=== PATIENT | female | born 1990 | race African-American/Black ===

== ENCOUNTER 2018-01-31 03:08 | Emergency (ER) | payer OTHER ==
[~2018-01-31] VITALS: Ht 162.6 cm; Wt 63.5 kg
--- NOTE | 2018-01-31 03:41 | PHYS DOC ---
Adult General Chief Complaint Chief Complaint: HEMATEMESIS/VOMITING BLOOD HPI HPI 27 female presents to the emergency department after an episode of vomiting. She states that she vomited bright red blood. She states that the first episode was not bloody. 2 Was. She Denies Any Chest Pain. She Admits to Some Abdominal Cramping. States Symptoms Started Yesterday. Denies Fevers or Chills. Review of Systems Review of Systems Constitutional: Denies fever or chills Eyes: Denies change in visual acuity, redness, or eye pain HENT: Denies nasal congestion or sore throat Respiratory: Denies cough or shortness of breath Cardiovascular: No additional information not addressed in HPI : Denies dysuria or hematuria Musculoskeletal: Denies back pain or joint pain Integument: Denies rash or skin lesions Neurologic: Denies headache, focal weakness or sensory changes Endocrine: Denies polyuria or polydipsia All other systems were reviewed and found to be within normal limits, except as documented in this note. Family History Family History noncontributory Current Medications Current Medications Current Medications Medications (Trade) Dose Ordered Sig/Maria Esther Start Time Stop Time Status Last Admin Dose Admin Famotidine (Pepcid Vial) 40 mg 1X ONCE 01/31/18 04:00 01/31/18 04:01 DC 01/31/18 04:40 40 MG Info (CONTRAST GIVEN -- Rx MONITORING) 1 each PRN DAILY PRN 01/31/18 05:45 02/02/18 05:44 Iohexol (Omnipaque 300 Mg/ml) 75 ml 1X ONCE 01/31/18 05:45 01/31/18 05:46 DC 01/31/18 05:47 75 ML Promethazine HCl (Phenergan Im) 25 mg 1X ONCE 01/31/18 04:00 01/31/18 04:01 DC 01/31/18 04:39 25 MG Sodium Chloride 1,000 ml @ 1,000 mls/hr 1X ONCE 01/31/18 04:00 01/31/18 04:59 DC 01/31/18 04:39 1,000 MLS/HR none Allergies Allergies Allergies Coded Allergies Type Severity Reaction Last Updated Verified No Known Drug Allergies 01/31/18 No Physical Exam Physical Exam GENERAL: Awake, alert, well appearing, nontoxic HEAD/NECK/EYES: Normocephalic, Neck supple, PERRL ENT Airway patent, mucous membranes moist RESP: Nontachypneic, no respiratory distress, normal breath sounds bilaterally, no chest wall crepitus or tenderness CV: Regular rhythm, normal perfusion ABD/GI: Soft, non-tender, no guarding, no rebound BACK: Inspection NL EXT: Neurovascularly intact, no deformities SKIN: Warm, dry NEURO: Oriented X3, normal speech, no motor deficits, no sensory deficits, CN II - XII intact PSYCH: Cooperative, appropriate affect Current Patient Data Vital Signs Vital Signs Date Time Temp Pulse Resp B/P (MAP) Pulse Ox O2 Delivery O2 Flow Rate FiO2 01/31/18 03:30 98.2 74 110/56 (74) 99 Room Air 98.2 Lab Values Laboratory Tests Test 01/31/18 03:24 01/31/18 03:40 01/31/18 04:25 Urine Collection Type Unknown Urine Color Negrita Urine Clarity Clear Urine pH 5.5 Urine Specific [place] >=1.030 Urine Protein Negative mg/dL (NEG-TRACE) Urine Glucose (UA) Negative mg/dL (NEG) Urine Ketones (Stick) Trace mg/dL (NEG) Urine Blood Negative (NEG) Urine Nitrite Negative (NEG) Urine Bilirubin Small (NEG) Urine Urobilinogen Dipstick 0.2 mg/dL (0.2 mg/dL) Urine Leukocyte Esterase Trace (NEG) Urine RBC 0 /HPF (0-2) Urine WBC 5-10 /HPF (0-4) Urine Squamous Epithelial Cells Few /LPF Urine Bacteria Few /HPF (0-FEW) Urine Mucus Mod /LPF POC Urine HCG, Qualitative Hcg negative (Negative) White Blood Count 8.5 x10^3/uL (4.0-11.0) Red Blood Count 4.34 x10^6/uL (3.50-5.40) Hemoglobin 12.8 g/dL (12.0-15.5) Hematocrit 37.8 % (36.0-47.0) Mean Corpuscular Volume 87 fL (79-100) Mean Corpuscular Hemoglobin 29 pg (25-35) Mean Corpuscular Hemoglobin Concent 34 g/dL (31-37) Red Cell Distribution Width 12.7 % (11.5-14.5) Platelet Count 330 x10^3/uL (140-400) Neutrophils (%) (Auto) 90 % (31-73) H Lymphocytes (%) (Auto) 3 % (24-48) L Monocytes (%) (Auto) 7 % (0-9) Eosinophils (%) (Auto) 0 % (0-3) Basophils (%) (Auto) 0 % (0-3) Neutrophils # (Auto) 7.7 x10^3uL (1.8-7.7) Lymphocytes # (Auto) 0.3 x10^3/uL (1.0-4.8) L Monocytes # (Auto) 0.6 x10^3/uL (0.0-1.1) Eosinophils # (Auto) 0.0 x10^3/uL (0.0-0.7) Basophils # (Auto) 0.0 x10^3/uL (0.0-0.2) Platelet Estimate Pending Sodium Level 141 mmol/L (136-145) Potassium Level 3.4 mmol/L (3.5-5.1) L Chloride Level 104 mmol/L (98-107) Carbon Dioxide Level 26 mmol/L (21-32) Anion Gap 11 (6-14) Blood Urea Nitrogen 11 mg/dL (7-20) Creatinine 0.6 mg/dL (0.6-1.0) Estimated GFR (Cockcroft-Gault) 146.2 BUN/Creatinine Ratio 18 (6-20) Glucose Level 100 mg/dL (70-99) H Calcium Level 8.7 mg/dL (8.5-10.1) Total Bilirubin 0.5 mg/dL (0.2-1.0) Aspartate Amino Transferase (AST) 17 U/L (15-37) Alanine Aminotransferase (ALT) 20 U/L (14-59) Alkaline Phosphatase 65 U/L (46-116) Total Protein 6.9 g/dL (6.4-8.2) Albumin 3.6 g/dL (3.4-5.0) Albumin/Globulin Ratio 1.1 (1.0-1.7) Lipase 174 U/L (73-393) Laboratory Tests 01/31/18 04:25 Laboratory Tests 01/31/18 04:25 EKG EKG [] Radiology/Procedures Radiology/Procedures [] Course & Med Decision Making Course & Med Decision Making Pertinent Labs and Imaging studies reviewed. (See chart for details) Differential includes but not limited to: Emily-Carpenter tear, vomiting of red food, (doubt Boerhaave's or esophageal varices or peptic ulcer bleeding given the description, generally well appearance the patient and exam) 6:34 AM. No further vomiting here in the emergency department. No hematemesis. Patient is generally well-appearing. Stable and improved throughout emergency department stay. Discussed CT scan and lab results and need for outpatient follow-up with primary care doctor. Discussed ovarian abnormality on CT scan and need for routine outpatient follow-up. Stable for discharge and agreeable to plan. PATIENT: NASEEM DORSEY ACCOUNT: [id number] : 1990 LOCATION: ER AGE: 27 SEX: F EXAM STATUS: REG ER ORD. PHYSICIAN: MERLE RODRIGUEZ DO REASON: vomiting, abdominal pain PROCEDURE: CT ABD PELV W/ IV CONTRST ONLY INDICATION: ABD PAIN WITH NAUSEA, VOMIITNG
OMNI 300 75ML, NO PRIORS COMPARISON: None. TECHNIQUE: Axial CT images obtained through the abdomen and pelvis with contrast. One or more of the following individualized dose reduction techniques were utilized for this examination: 1. Automated exposure control; 2. Adjustment of the mA and/or kV according to patient size; 3. Use of iterative reconstruction technique. FINDINGS: Abdominal aorta is not aneurysmal. No intrahepatic bile duct dilation. The pancreas enhances. Spleen unremarkable. Prominence of the bilateral extrarenal pelvis with symmetric renal enhancement. Urinary bladder has minimal urine within it at time of exam. Suspected 23 mm cystic lesion right adnexa. The proximal appendix measures approximately 5-6 mm. Distal appendix measures approximately 6 mm. Definitive adjacent inflammation is not seen but difficult evaluation secondary to multiple loops of bowel adjacent to the appendix without contrast within. No dilated loops of bowel to suggest obstruction. Small fat-containing umbilical hernia. IMPRESSION: 1. No evidence of bowel obstruction. 2. Mildly prominent bilateral extrarenal pelvis. 3. Suspected cystic lesion or dominant follicle right adnexa. Electronically signed by: Raymundo Castrejon MD (01/31/2018 6:17 AM) [facility] DICTATED and SIGNED BY: RAYMUNDO CASTREJON MD DATE: 01/31/18 0605 [place] Disclaimer Dragon Disclaimer This electronic medical record was generated, in whole or in part, using a voice recognition dictation system. Departure Departure Impression: Primary Impression: Hematemesis Additional Impression: Abdominal pain Disposition: HOME, SELF-CARE Condition: STABLE Referrals: NO PCP (PCP) Patient Instructions: Hematemesis Additional Instructions: SEE YOUR PRIMARY DOCTOR WITHIN THE NEXT 5-7 DAYS AND HAVE HER/HIM FOLLOWUP ON YOUR EMERGENCY DEPARTMENT STAY INCLUDING ALL IMAGING PERFORMED. Problem Qualifiers MERLE RODRIGUEZ DO Jan 31, 2018 03:41
[2018-01-31 03:49] LABS: BILIRUBIN,URINE SMALL (NEG); CLARITY,URINE CLEAR; COLOR,URINE AMBER; NITRITE,URINE NEGATIVE (NEG); PH,URINE 5.5; PROTEIN,URINE NEGATIVE (NEG-TRACE); UROBILINOGEN,URINE 0.2 mg/dL (0.2 mg/dL)
[2018-01-31 03:56] LABS: BACTERIA,URINE FEW /HPF (0-FEW); RBC,URINE 0 /HPF (0-2); SQUAMOUS EPITHELIAL CELL,UR FEW /LPF
[2018-01-31] MEDS ORDERED: IV NORMAL SALINE 1000ML BAG 1,000 ML IV ONE (04:00)
[2018-01-31] MEDS ORDERED: PROMETHAZINE IM 25 MG/ML VIAL IM ONE (04:00)
[2018-01-31] MEDS ORDERED: FAMOTIDINE 20 MG/2 ML VIAL IVP ONE (04:00)
[2018-01-31 04:38] LABS: BASO % 0 % (0-3); EOS % 0 % (0-3); HEMATOCRIT 37.8 % (36.0-47.0); HEMOGLOBIN 12.8 g/dL (12.0-15.5); LYMPH # 0.3 x10^3/uL (1.0-4.8); LYMPH % 3 % (24-48); MEAN CORPUSCULAR HEMOGLOBIN 29 pg (25-35); MEAN CORPUSCULAR HGB CONC 34 g/dL (31-37); MEAN CORPUSCULAR VOLUME 87 fL (79-100); MONO # 0.6 x10^3/uL (0.0-1.1); MONO % 7 % (0-9); NEUT # 7.7 x10^3uL (1.8-7.7); NEUT % 90 % (31-73); PLATELET COUNT 330 x10^3/uL (140-400); RED BLOOD COUNT 4.34 x10^6/uL (3.50-5.40); RED CELL DISTRIBUTION WIDTH 12.7 % (11.5-14.5); WHITE BLOOD COUNT 8.5 x10^3/uL (4.0-11.0)
[2018-01-31 04:44] LABS: CALCIUM 8.7 mg/dL (8.5-10.1); CREATININE 0.6 mg/dL (0.6-1.0); GFR 146.2; POTASSIUM 3.4 mmol/L (3.5-5.1)
[2018-01-31 04:49] LABS: ALBUMIN 3.6 g/dL (3.4-5.0); ALBUMIN/GLOBULIN RATIO 1.1 (1.0-1.7); TOTAL BILIRUBIN 0.5 mg/dL (0.2-1.0); TOTAL PROTEIN 6.9 g/dL (6.4-8.2)
[2018-01-31 05:15] VITALS: BP 108/59
[2018-01-31] MEDS ORDERED: IOHEXOL 300 MG/ML 100ML VIAL. IV ONE (05:45)
[2018-01-31] MEDS ORDERED: CONTRAST GIVEN. MC PRN (05:45)
--- NOTE | 2018-01-31 06:20 | RAD ---
INDICATION: ABD PAIN WITH NAUSEA, VOMIITNG
OMNI 300 75ML, NO PRIORS COMPARISON: None. TECHNIQUE: Axial CT images obtained through the abdomen and pelvis with contrast. One or more of the following individualized dose reduction techniques were utilized for this examination: 1. Automated exposure control; 2. Adjustment of the mA and/or kV according to patient size; 3. Use of iterative reconstruction technique. FINDINGS: Abdominal aorta is not aneurysmal. No intrahepatic bile duct dilation. The pancreas enhances. Spleen unremarkable. Prominence of the bilateral extrarenal pelvis with symmetric renal enhancement. Urinary bladder has minimal urine within it at time of exam. Suspected 23 mm cystic lesion right adnexa. The proximal appendix measures approximately 5-6 mm. Distal appendix measures approximately 6 mm. Definitive adjacent inflammation is not seen but difficult evaluation secondary to multiple loops of bowel adjacent to the appendix without contrast within. No dilated loops of bowel to suggest obstruction. Small fat-containing umbilical hernia. IMPRESSION: 1. No evidence of bowel obstruction. 2. Mildly prominent bilateral extrarenal pelvis. 3. Suspected cystic lesion or dominant follicle right adnexa. Electronically signed by: Raymundo Montes MD (01/31/2018 6:17 AM) [facility]
[2018-01-31] MEDS ORDERED: ONDA4TAB7 PO (06:39)
[2018-01-31] MEDS ORDERED: FAMO40OR3 PO (06:39)
[2018-01-31 07:43] LABS: % ATYL 1 % (0-0); % BANDS 3 % (0-9); % LYMPHS 6 % (24-48); % MONOS 2 % (0-10); % SEGS 88 % (35-66); ANISOCYTOSIS SLIGHT; PLT ESTIMATE ADEQUATE (ADEQUATE)
== END 2018-01-31 06:55 | disposition home or self-care (01) ==
LOC: ER 03:08
DX: K92.0 Hematemesis (principal); R10.9 Unspecified abdominal pain; R11.10 Vomiting, unspecified
CPT/HCPCS: 36415; 74177; 80053; 81001; 81025; 83690; 85007; 85025; 87086; 96361; 96372; 96374; 99285; J2550; J7030; Q9967; S0028

== ENCOUNTER 2020-04-09 00:21 | Emergency (ER) | payer MEDICAID ==
[2019-06-23 23:50] VITALS: BP 121/62
[~2020-04-09 00:21] MED LIST: FAMO40OR3 PO; HYDR-3164 PO; ONDA4TAB7 PO
== END 2020-04-09 00:45 | disposition left against medical advice (07) ==
LOC: ER 00:21
DX: S69.91XA Unspecified injury of right wrist, hand and finger(s), initial encounter (principal); Z53.21 Procedure and treatment not carried out due to patient leaving prior to being seen by health care provider; X58.XXXA Exposure to other specified factors, initial encounter; Y93.89 Activity, other specified; Y92.89 Other specified places as the place of occurrence of the external cause; Y99.8 Other external cause status

== ENCOUNTER 2020-09-22 18:59 | Emergency (ER) | payer MEDICAID ==
[~2020-09-22] VITALS: Ht 162.6 cm; Wt 62.5 kg
[2020-09-22 20:37] LABS: BILIRUBIN,URINE SMALL (NEG); CLARITY,URINE CLEAR; COLOR,URINE AMBER; NITRITE,URINE NEGATIVE (NEG); PH,URINE 6.5 (<5.0-8.0); PROTEIN,URINE 30 mg/dL (NEG-TRACE)
[2020-09-22 20:44] LABS: BACTERIA,URINE MODERATE /HPF (0-FEW); RBC,URINE 0 /HPF (0-2)
[2020-09-22] MEDS ORDERED: HYDROcodone/APAP 10/325 1 TAB TABLET PO ONE (21:00)
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
[2020-09-22] MEDS ORDERED: DIPH,PERTUSS(ACELL),TET VAC/PF 0.5 ML SYRINGE. VAX IM ONE (21:15)
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
[2020-09-22 22:10] VITALS: BP 131/82
[2020-09-22] MEDS ORDERED: AMOX1TAB61 PO (22:40)
== END 2020-09-22 22:53 | disposition home or self-care (01) ==
LOC: ER 18:59
DX: S00.83XA Contusion of other part of head, initial encounter (principal); M54.2 Cervicalgia; M79.602 Pain in left arm; F17.200 Nicotine dependence, unspecified, uncomplicated; Y04.1XXA Assault by human bite, initial encounter; Y93.89 Activity, other specified; Y92.89 Other specified places as the place of occurrence of the external cause; Y99.8 Other external cause status
CPT/HCPCS: 70450; 70486; 72125; 81001; 81025; 87086; 90471; 90715; 99285-25